=== PATIENT | female | born 1935 | race Caucasian/White ===

== ENCOUNTER → 2017-11-05 10:54 | Outpatient (CLI) | payer MEDICARE, BC, SELFPAY ==
--- NOTE | 2017-11-05 | DI.RAD.S_ITS ---
PROCEDURE: XR KNEE RT 3V INDICATIONS: PAIN TECHNIQUE: 3 views of the knee were acquired. COMPARISON: None. FINDINGS: Bones: No fractures or dislocations. No suspicious bony lesions. Marginal bone spurs over the femoral patellar compartment. Soft tissues: Moderate joint effusion. Lateral meniscal calcifications. IMPRESSION: 1. No acute bony abnormality. 2. Moderate effusion. 3. Femoral patellar osteoarthritis 4. Chondrocalcinosis Dictated by: Kit Teague M.D. on 11/05/2017 at 11:37 Approved by: Kit Teague M.D. on 11/05/2017 at 11:39
--- NOTE | 2017-11-05 | DI.RAD.S_ITS ---
PROCEDURE: XR HIP W PEL IF DONE RT 2V INDICATIONS: PAIN TECHNIQUE: 2 views of the hip were acquired. COMPARISON: [facility], , PELVIS WITH BILATERAL HIPS, 01/25/2009, 15:20. FINDINGS: Bones: Total hip arthroplasty is evident, components appearing intact with expected alignment. No evidence of loosening. No fractures or dislocations. No suspicious bony lesions. The visualized pelvic ring appears intact. Soft tissues: No suspicious soft tissue calcifications or masses. IMPRESSION: Status post total right hip arthroplasty with expected appearance. No acute bony abnormality seen. Dictated by: Kit Teague M.D. on 11/05/2017 at 11:35 Approved by: Kit Teague M.D. on 11/05/2017 at 11:37
== END ==
PROVIDERS: Family Provider Internal Medicine; PCP Internal Medicine; Visit Provider Physician Assistant
DX: M25.551 Pain in right hip (principal); Z96.641 Presence of right artificial hip joint; M25.461 Effusion, right knee; M17.11 Unilateral primary osteoarthritis, right knee; M11.261 Other chondrocalcinosis, right knee
CPT/HCPCS: 73502; 73562

== ENCOUNTER → 2018-03-26 09:58 | Outpatient (CLI) | payer MEDICARE, BC, SELFPAY ==
--- NOTE | 2018-03-26 | DI.MG.S_ITS ---
BILATERAL DIGITAL SCREENING MAMMOGRAM 3D/2D WITH CAD: 03/26/2018 CLINICAL: Routine screening. Comparison is made to exams dated: 01/17/2017 mammogram, 07/24/2012 mammogram, and 08/23/2010 mammogram - [facility]. The tissue of both breasts is heterogeneously dense. This may lower the sensitivity of mammography. Current study was also evaluated with a Computer Aided Detection (CAD) system. No significant masses, calcifications, or other findings are seen in either breast. There has been no significant interval change. IMPRESSION: NEGATIVE There is no mammographic evidence of malignancy. A 1 year screening mammogram is recommended. This exam was interpreted at Station ID: [id number]. NOTE: For mammograms, a report in lay terms will be sent to the patient. Approximately 15% of breast malignancies will not be visualized mammographically. In the management of a palpable breast mass, a negative mammogram must not discourage biopsy of a clinically suspicious lesion. Electronically Signed By: Hermann santiago/agnes:03/26/2018 17:47:10 letter sent: Normal Exam ACR BI-RADS Category 1: Negative 3341F
== END ==
PROVIDERS: Family Provider Internal Medicine; PCP Internal Medicine; Visit Provider Physician Assistant
DX: Z12.31 Encounter for screening mammogram for malignant neoplasm of breast (principal); M81.0 Age-related osteoporosis without current pathological fracture; Z78.0 Asymptomatic menopausal state; E11.9 Type 2 diabetes mellitus without complications; Z82.62 Family history of osteoporosis; Z90.722 Acquired absence of ovaries, bilateral
CPT/HCPCS: 77063; 77067; 77080

== ENCOUNTER → 2018-09-21 09:17 | Outpatient (CLI) | payer MEDICARE, BC, SELFPAY ==
[2018-09-21 10:26] LABS: Add Manual Diff / Slide Review NO; Basophils Absolute Auto 100 /uL (0-100); Basophils Percent Auto 1.1 % (0-2); Eosinophils Absolute Auto 300 /uL (0-450); Eosinophils Percent Auto 3.7 % (2-4); Hematocrit 38.1 % (36-46); Hemoglobin 12.4 g/dL (12.0-16.0); Lymphocytes Absolute Auto 1700 /uL (1100-4500); Lymphocytes Percent Auto 24.4 % (25-40); Mean Corpuscular HGB Conc 32.5 % (30-36); Mean Corpuscular Hemoglobin 30.3 PG (26-34); Mean Corpuscular Volume 93.3 fL (80-100); Monocytes Absolute Auto 500 /uL (0-900); Monocytes Percent Auto 7.6 % (3-14); Neutrophils Absolute Auto 4400 /uL (1500-7000); Neutrophils Percent Auto 63.2 % (50-75); Platelet Count 278 X10^3/uL (150-400); Red Blood Cell Count 4.09 X10^6/uL (4.0-5.2); Red Cell Distribution Width 15.3 % (11.6-14.8)
[2018-09-21 10:30] LABS: Alanine Aminotransferase 29 IU/L (9-52); Albumin 4.3 g/dL (3.5-5.0); Albumin Globulin Ratio 1.8 (1.0-2.8); Alkaline Phosphatase 64 U/L (38-126); Aspartate Aminotransferase 26 IU/L (14-36); BUN Creatinine Ratio 33.1 (6-22); Bilirubin Total 0.4 mg/dL (0.2-1.3); Blood Urea Nitrogen 43 mg/dL (7-17); Calcium 9.1 mg/dL (8.4-10.2); Carbon Dioxide 24 mmol/L (22-32); Chloride 104 mmol/L (98-107); Estimated Glomerular Filt Rate 39.2 mL/min (>60); Globulin 2.4 g/dL (1.7-4.1); Glucose 87 mg/dL (80-110); HEMOLYSIS < 15 (0-50); Potassium 4.7 mmol/L (3.4-5.1); Sodium 137 mmol/L (137-145); Total Protein 6.7 g/dL (6.3-8.2)
[2018-09-21 10:56] LABS: TSH w/ Reflex to FT4 2.03 uIU/mL (0.47-4.68)
[2018-09-21 11:16] LABS: Vitamin B12 488 pg/mL (239-931)
[2018-09-25 19:08] LABS: Albumin 3.9 g/dL (3.8-4.8); Alpha 1 Globulin 0.3 g/dL (0.2-0.3); Alpha 2 Globulin 0.8 g/dL (0.5-0.9); Beta 1 Globulin 0.4 g/dL (0.4-0.6); Gamma Globulin 0.5 g/dL (0.8-1.7); Protein, Total 6.2 g/dL (6.1-8.1)
[2018-10-05 09:37] LABS: Miscellaneous to LabCorp Non Reactive
== END ==
PROVIDERS: PCP Internal Medicine; Visit Provider Internal Medicine
DX: G62.9 Polyneuropathy, unspecified (principal); N18.3 Chronic kidney disease, stage 3 (moderate); I12.9 Hypertensive chronic kidney disease with stage 1 through stage 4 chronic kidney disease, or unspecified chronic kidney disease
CPT/HCPCS: 36415; 80053; 82607; 84155; 84165; 84443; 85025; 86592

== ENCOUNTER → 2018-10-31 09:30 | Outpatient (CLI) | payer MEDICARE, BC, SELFPAY ==
[2018-10-31 10:37] LABS: Add Manual Diff / Slide Review NO; Basophils Absolute Auto 100 /uL (0-100); Basophils Percent Auto 0.7 % (0-2); Eosinophils Absolute Auto 100 /uL (0-450); Eosinophils Percent Auto 1.7 % (2-4); Hematocrit 36.3 % (36-46); Hemoglobin 12.1 g/dL (12.0-16.0); Lymphocytes Absolute Auto 1300 /uL (1100-4500); Lymphocytes Percent Auto 17.1 % (25-40); Mean Corpuscular HGB Conc 33.2 % (30-36); Mean Corpuscular Hemoglobin 30.5 PG (26-34); Mean Corpuscular Volume 92.1 fL (80-100); Monocytes Absolute Auto 500 /uL (0-900); Monocytes Percent Auto 6.6 % (3-14); Neutrophils Absolute Auto 5800 /uL (1500-7000); Neutrophils Percent Auto 73.9 % (50-75); Platelet Count 336 X10^3/uL (150-400); Red Blood Cell Count 3.95 X10^6/uL (4.0-5.2); Red Cell Distribution Width 15.8 % (11.6-14.8); White Blood Cell Count 7.9 X10^3/uL (4.5-11.0)
[2018-10-31 10:56] LABS: INR 2.3 (0.9-1.3); Prothrombin Time 26.4 SECONDS (10.1-12.7)
[2018-10-31 10:58] LABS: PTT Partial Thromboplastin Tim 44 SECONDS (26.4-36.2)
[2018-10-31 10:59] LABS: Erythrocyte Sedimentation Rate 16 MM/HR (0-20)
[2018-10-31 11:02] LABS: Creatine Kinase 131 U/L (30-135)
[2018-11-02 15:02] LABS: Aldolase 6.9 U/L (< 8.2)
[2018-11-02 17:58] LABS: ANCA Screen Negative (Negative)
[2018-11-02 18:13] LABS: Immunoglobulin E 6 kU/L (< 115)
== END ==
PROVIDERS: PCP Internal Medicine; Visit Provider Internal Medicine
DX: D80.1 Nonfamilial hypogammaglobulinemia (principal); G62.9 Polyneuropathy, unspecified; Z86.79 Personal history of other diseases of the circulatory system; M62.81 Muscle weakness (generalized); I48.0 Paroxysmal atrial fibrillation
CPT/HCPCS: 36415; 82085; 82550; 82784; 82785; 85025; 85610; 85651; 85730; 86021; 86140; 86335

== ENCOUNTER → 2018-11-17 15:23 | Outpatient (CLI) | payer MEDICARE, BC, SELFPAY ==
--- NOTE | 2018-11-17 | DI.RAD.S_ITS ---
PROCEDURE: XR CHEST 2V INDICATIONS: Dyspnea on exertion TECHNIQUE: 2 views of the chest were acquired. COMPARISON: [facility], , CHEST 1 VIEW, 07/23/2016, 16:02. FINDINGS: Surgical changes and devices: None. Lungs and pleura: Minimal blunting of the left costophrenic angle. No pneumothorax. No right pleural effusion. No acute consolidation. Scattered subsegmental atelectasis and/or scarring Mediastinum: Mediastinal contours are normal. Heart size is normal. Bones and chest wall: No suspicious bony abnormalities. Diffuse spondylosis. Soft tissues appear unremarkable. IMPRESSION: Minimal blunting of left costophrenic angle, which could represent trace pleural fluid versus scarring/atelectasis. Dictated by: Abdi Greco M.D. on 11/17/2018 at 16:35 Approved by: Abdi Greco M.D. on 11/17/2018 at 16:36
[2018-11-17 16:00] LABS: Add Manual Diff / Slide Review NO; Basophils Absolute Auto 100 /uL (0-100); Eosinophils Absolute Auto 200 /uL (0-450); Eosinophils Percent Auto 2.3 % (2-4); Hematocrit 35.5 % (36-46); Hemoglobin 11.6 g/dL (12.0-16.0); Lymphocytes Absolute Auto 1500 /uL (1100-4500); Lymphocytes Percent Auto 17.9 % (25-40); Mean Corpuscular HGB Conc 32.8 % (30-36); Mean Corpuscular Hemoglobin 30.3 PG (26-34); Mean Corpuscular Volume 92.3 fL (80-100); Monocytes Absolute Auto 700 /uL (0-900); Monocytes Percent Auto 8.1 % (3-14); Neutrophils Absolute Auto 6100 /uL (1500-7000); Neutrophils Percent Auto 70.7 % (50-75); Platelet Count 365 X10^3/uL (150-400); Red Blood Cell Count 3.84 X10^6/uL (4.0-5.2); Red Cell Distribution Width 15.9 % (11.6-14.8); White Blood Cell Count 8.6 X10^3/uL (4.5-11.0)
[2018-11-17 16:15] LABS: B Type Natriuretic Peptide 419 (<100)
[2018-11-17 16:35] LABS: BUN Creatinine Ratio 24.7 (6-22); Blood Urea Nitrogen 42 mg/dL (7-17); Calcium 9.4 mg/dL (8.4-10.2); Carbon Dioxide 24 mmol/L (22-32); Chloride 108 mmol/L (98-107); Estimated Glomerular Filt Rate 28.8 mL/min (>60); Glucose 89 mg/dL (80-110); HEMOLYSIS < 15 (0-50); Sodium 140 mmol/L (137-145)
[2018-11-17 16:39] LABS: Potassium 5.6 mmol/L (3.4-5.1)
== END ==
PROVIDERS: PCP Internal Medicine; Visit Provider Internal Medicine
DX: R06.09 Other forms of dyspnea (principal); I10 Essential (primary) hypertension
CPT/HCPCS: 36415; 71046; 80048; 83880; 85025

== ENCOUNTER → 2018-12-10 16:32 | Outpatient (CLI) | payer MEDICARE, BC, SELFPAY ==
--- NOTE | 2018-12-10 | DI.RAD.S_ITS ---
PROCEDURE: XR KNEE RT 3V INDICATIONS: HISTORY OF RIGHT HIP AND KNEE PAIN TECHNIQUE: 3 views of the knee were acquired. COMPARISON: [facility], CR, XR KNEE STANDING BILATERAL, 11/18/2017, 9:33. [facility], CR, XR KNEE RT 3V, 11/05/2017, 10:39. FINDINGS: Bones: No fractures or dislocations. No suspicious bony lesions. Moderate degenerative osteoarthritis is present at the lateral compartment of the knee on the frontal view, and at the lateral facet of the patellofemoral joint. Soft tissues: There appears to be a moderate-sized suprapatellar joint effusion. No suspicious soft tissue calcifications. IMPRESSION: Moderate knee joint osteoarthritis, best seen at the lateral compartment. Moderate knee joint effusion appears present on the lateral view, etiology uncertain. Please correlate for whether trauma has proceeded this examination. Dictated by: Nasir Whipple M.D. on 12/11/2018 at 8:15 Approved by: Nasir Whipple M.D. on 12/11/2018 at 8:17
--- NOTE | 2018-12-10 | DI.RAD.S_ITS ---
PROCEDURE: XR HIP RT 1V INDICATIONS: HISTORY OF RIGHT HIP AND KNEE PAIN TECHNIQUE: 2 views of the hip were acquired. COMPARISON: [facility], CR, XR HIP W PEL IF DONE RT 2V, 11/05/2017, 10:39. FINDINGS: Bones: No fractures or dislocations. No suspicious bony lesions. The visualized pelvic ring appears intact. Soft tissues: No suspicious soft tissue calcifications or masses. IMPRESSION: Stable appearing right total hip arthroplasty, moderate osteoarthritis at the left hip joint. No evidence of device loosening or disruption, or recent trauma. Dictated by: Nasir Whipple M.D. on 12/11/2018 at 8:14 Approved by: Nasir Whipple M.D. on 12/11/2018 at 8:15
--- NOTE | 2018-12-10 | DI.RAD.S_ITS ---
PROCEDURE: XR LUMBAR SPINE MIN 4V INDICATIONS: HISTORY OF RIGHT HIP AND KNEE PAIN TECHNIQUE: 5 views of the lumbar spine were acquired. COMPARISON: [facility], CR, L-SPINE 2-3 VIEWS, 09/17/2016, 12:36. [facility] With [facility], CR, L-SPINE 2-3 VIEWS, 05/06/2014, 9:54. FINDINGS: Bones: 5 nonrib-bearing vertebrae are present. There is abnormal bony alignment with moderate convex rightward scoliosis centered at the thoracolumbar junction and mild to moderate convex leftward scoliosis centered at the L4-5 disc space. This pattern has been previously present without worsening. Degenerative disc disease along the lumbosacral spine is moderately severe and most pronounced along the inner curvature of the 2 areas of dominant and since it iary scoliosis. The facet osteoarthritis present at the thoracolumbar junction and lumbosacral spine has mildly worsened as has the osteophyte formation from adjacent disc spaces best seen at L4-5 and L5-S1. Spinal and foraminal stenosis would be expected and appears to have moderately worsened from 2013. No vertebral body compression fractures. No suspicious bony lesions. Soft tissues: Overlying bowel gas pattern is normal. No suspicious soft tissue calcifications. Oblique images: No pars defects. IMPRESSION: Worsening degenerative disc disease and facet osteoarthritis best seen over the lower third of the lumbosacral spine associated with stable appearing convex rightward thoracolumbar junction scoliosis and compensatory subsidiary convex leftward scoliosis centered at L4-5. Overall increased spinal and foraminal stenosis would be expected. Dictated by: Nasir Whipple M.D. on 12/11/2018 at 8:18 Approved by: Nasir Whipple M.D. on 12/11/2018 at 8:22
[2018-12-10 18:07] LABS: BUN Creatinine Ratio 36.5 (6-22); Blood Urea Nitrogen 62 mg/dL (7-17); Calcium 10.2 mg/dL (8.4-10.2); Carbon Dioxide 23 mmol/L (22-32); Chloride 103 mmol/L (98-107); Estimated Glomerular Filt Rate 28.7 mL/min (>60); Glucose 88 mg/dL (80-110); HEMOLYSIS < 15 (0-50); Sodium 138 mmol/L (137-145)
[2018-12-10 18:17] LABS: Potassium 5.4 mmol/L (3.4-5.1)
== END ==
PROVIDERS: PCP Internal Medicine; Visit Provider Internal Medicine
DX: M25.561 Pain in right knee (principal); M54.41 Lumbago with sciatica, right side; M25.551 Pain in right hip; M17.11 Unilateral primary osteoarthritis, right knee; M25.461 Effusion, right knee; M51.37 Other intervertebral disc degeneration, lumbosacral region; M47.817 Spondylosis without myelopathy or radiculopathy, lumbosacral region
CPT/HCPCS: 36415; 72110; 73501; 73562; 80048

== ENCOUNTER → 2019-01-05 17:29 | Outpatient (ROUT) | payer MEDICARE, BC, SELFPAY ==
[2019-01-05 17:49] LABS: BUN Creatinine Ratio 37.7 (6-22); Blood Urea Nitrogen 49 mg/dL (7-17); Calcium 9.5 mg/dL (8.4-10.2); Carbon Dioxide 21 mmol/L (22-32); Chloride 108 mmol/L (98-107); Estimated Glomerular Filt Rate 39.1 mL/min (>60); Glucose 143 mg/dL (80-110); HEMOLYSIS < 15 (0-50); Potassium 4.9 mmol/L (3.4-5.1); Sodium 138 mmol/L (137-145)
[2019-01-05 17:58] LABS: B Type Natriuretic Peptide 559 (<100)
== END ==
PROVIDERS: PCP Internal Medicine; Visit Provider Internal Medicine
DX: R60.9 Edema, unspecified (principal)
CPT/HCPCS: 80048; 83880

== ENCOUNTER → 2019-01-19 09:08 | Outpatient (CLI) | payer MEDICARE, BC, SELFPAY ==
[2019-01-19 10:45] LABS: BUN Creatinine Ratio 26.2 (6-22); Blood Urea Nitrogen 34 mg/dL (7-17); Calcium 9.3 mg/dL (8.4-10.2); Carbon Dioxide 22 mmol/L (22-32); Chloride 105 mmol/L (98-107); Estimated Glomerular Filt Rate 39.1 mL/min (>60); Glucose 71 mg/dL (80-110); HEMOLYSIS < 15 (0-50); Potassium 4.4 mmol/L (3.4-5.1); Sodium 138 mmol/L (137-145)
[2019-01-19 11:04] LABS: B Type Natriuretic Peptide 346 (<100)
== END ==
PROVIDERS: PCP Internal Medicine; Visit Provider Internal Medicine
DX: I10 Essential (primary) hypertension (principal); R06.00 Dyspnea, unspecified
CPT/HCPCS: 36415; 80048; 83880

== ENCOUNTER → 2019-01-27 19:15 | Outpatient (ROUT) | payer MEDICARE, BC, SELFPAY ==
[2019-01-27 19:33] LABS: BUN Creatinine Ratio 32.7 (6-22); Blood Urea Nitrogen 49 mg/dL (7-17); Calcium 9.3 mg/dL (8.4-10.2); Carbon Dioxide 23 mmol/L (22-32); Chloride 104 mmol/L (98-107); Estimated Glomerular Filt Rate 33.2 mL/min (>60); Glucose 91 mg/dL (80-110); HEMOLYSIS < 15 (0-50); Potassium 4.8 mmol/L (3.4-5.1); Sodium 138 mmol/L (137-145)
[2019-01-27 19:40] LABS: B Type Natriuretic Peptide 603 (<100)
== END ==
PROVIDERS: PCP Internal Medicine; Visit Provider Internal Medicine
DX: R60.9 Edema, unspecified (principal); R79.89 Other specified abnormal findings of blood chemistry
CPT/HCPCS: 80048; 83880

== ENCOUNTER → 2019-03-29 15:24 | Outpatient (ROUT) | payer MEDICARE, BC, SELFPAY ==
[2019-03-29 15:43] LABS: Add Manual Diff / Slide Review NO; Basophils Absolute Auto 100 /uL (0-100); Basophils Percent Auto 0.7 % (0-2); Eosinophils Absolute Auto 100 /uL (0-450); Eosinophils Percent Auto 1.8 % (2-4); Hematocrit 34.8 % (36-46); Hemoglobin 11.7 g/dL (12.0-16.0); Lymphocytes Absolute Auto 1100 /uL (1100-4500); Lymphocytes Percent Auto 15.2 % (25-40); Mean Corpuscular HGB Conc 33.6 % (30-36); Mean Corpuscular Hemoglobin 31.4 PG (26-34); Mean Corpuscular Volume 93.4 fL (80-100); Monocytes Absolute Auto 800 /uL (0-900); Monocytes Percent Auto 10.6 % (3-14); Neutrophils Absolute Auto 5300 /uL (1500-7000); Neutrophils Percent Auto 71.7 % (50-75); Platelet Count 335 X10^3/uL (150-400); Red Blood Cell Count 3.72 X10^6/uL (4.0-5.2); White Blood Cell Count 7.4 X10^3/uL (4.5-11.0)
[2019-03-29 15:50] LABS: B Type Natriuretic Peptide 279 (<100)
[2019-03-29 15:55] LABS: Alanine Aminotransferase 19 IU/L (<35); Albumin 4.5 g/dL (3.5-5.0); Albumin Globulin Ratio 1.9 (1.0-2.8); Alkaline Phosphatase 64 U/L (38-126); Aspartate Aminotransferase 26 IU/L (14-36); BUN Creatinine Ratio 34.7 (6-22); Bilirubin Total 0.6 mg/dL (0.2-1.3); Blood Urea Nitrogen 59 mg/dL (7-17); Calcium 10.4 mg/dL (8.4-10.2); Carbon Dioxide 24 mmol/L (22-32); Chloride 102 mmol/L (98-107); Estimated Glomerular Filt Rate 28.7 mL/min (>60); Globulin 2.4 g/dL (1.7-4.1); Glucose 75 mg/dL (80-110); HEMOLYSIS < 15 (0-50); Potassium 5.2 mmol/L (3.4-5.1); Sodium 138 mmol/L (137-145); Total Protein 6.9 g/dL (6.3-8.2)
[2019-03-29 16:14] LABS: Protein (Total) Urine Random 13 mg/dL (0-12); Protein Creatinine Ratio Urine 0.44 GRAM/24H
== END ==
PROVIDERS: PCP Internal Medicine; Visit Provider Internal Medicine
DX: R06.00 Dyspnea, unspecified (principal); I10 Essential (primary) hypertension; N18.3 Chronic kidney disease, stage 3 (moderate); E83.52 Hypercalcemia
CPT/HCPCS: 80053; 82570; 83880; 84156; 85025

== ENCOUNTER → 2019-04-06 14:51 | Outpatient (CLI) | payer MEDICARE, BC, SELFPAY ==
--- NOTE | 2019-04-06 | DI.MRI.S_ITS ---
PROCEDURE: MR KNEE RT WO CON INDICATIONS: KNEE PAIN TECHNIQUE: Noncontrast sagittal PD fast spin echo and T2 fast spin echo with fat saturation, sagittal 3-D FLASH with fat saturation; coronal T1 spin echo and PD fast spin echo with fat saturation, and axial PD fast spin echo with fat saturation through the knee. COMPARISON: [facility], CR, XR KNEE ARTHRITIC SERIES RT, 01/05/2019, 11:21. FINDINGS: Image quality: Excellent. Menisci: There is lateral meniscal extrusion and degenerative tear involving the body and antral horn tear lateral meniscus.. The medial and lateral menisci demonstrate normal morphology and internal signal. The meniscal root ligaments appear intact. Cruciate ligaments: The anterior and posterior cruciate ligaments appear intact. Medial structures: The medial collateral ligament appears intact. The posterior oblique ligament, semimembranosus tendon insertions, oblique popliteal ligament, and meniscocapsular junction appear intact. Visualized portions of the pes anserinus tendons appear normal. No abnormal bursal fluid. Lateral structures: The lateral collateral ligament, long and short heads of the biceps femoris tendon appear intact. The popliteus tendon appears normal; the popliteofibular ligament appears intact. The posterosuperior and anteroinferior popliteomeniscal fascicles appear intact. The arcuate and fabellofibular ligaments appear intact, on either side of the lateral inferior geniculate artery. Iliotibial band appears normal. Anterior structures: The quadriceps and patellar tendons appear intact. Patellar alignment is normal. No femoral trochlear dysplasia or ventral trochlear prominence. No edema in the infrapatellar fat pad. Bones and cartilage: No bone marrow contusions or fractures. Severe chondromalacia patella. There is also cartilage thinning and fibrillation of the medial and lateral femorotibial compartments, more pronounced in the lateral femorotibial compartment. There is subchondral edema in the patella, femoral trochlear and the lateral tibial plateau, likely secondary to [id number]. Joint space: There is moderate to large knee joint fluid. Trace Mandujano's cyst. Normal appearing synovial plicae are incidentally noted. There is nonspecific soft tissue edema around knee. IMPRESSION: 1. Lateral meniscal extrusion and degenerative tear of the body and anterior horn of the lateral meniscus. 2. Chondromalacia patella. There is also moderate cartilage loss in the lateral femorotibial compartment and mild cartilage loss in the medial femorotibial compartment. Subchondral edema in the patella, femoral trochlear and the lateral tibial plateau secondary to muiz-ce-pfwt. 3. Moderate to large knee joint effusion. 4. Nonspecific soft tissue edema. Dictated by: Stephanie Myers M.D. on 04/06/2019 at 16:42 Approved by: Stephanie Myers M.D. on 04/06/2019 at 18:48
--- NOTE | 2019-04-06 | DI.MG.S_ITS ---
BILATERAL DIGITAL SCREENING MAMMOGRAM 3D/2D WITH CAD: 04/06/2019 CLINICAL: Routine screening. Comparison is made to exams dated: 03/26/2018 mammogram, 01/29/2017 mammogram, and 01/17/2017 mammogram - [facility]. The tissue of both breasts is heterogeneously dense. This may lower the sensitivity of mammography. Current study was also evaluated with a Computer Aided Detection (CAD) system. No significant masses, calcifications, or other findings are seen in either breast. There has been no significant interval change. IMPRESSION: NEGATIVE There is no mammographic evidence of malignancy. A 1 year screening mammogram is recommended. This exam was interpreted at Station ID: [id number]. NOTE: For mammograms, a report in lay terms will be sent to the patient. Approximately 15% of breast malignancies will not be visualized mammographically. In the management of a palpable breast mass, a negative mammogram must not discourage biopsy of a clinically suspicious lesion. Electronically Signed By: Elicia tubbs/agnes:04/06/2019 18:54:26 letter sent: Normal Exam ACR BI-RADS Category 1: Negative 3341F
--- NOTE | 2019-04-06 | DI.MRI.S_ITS ---
PROCEDURE: MR LUMBAR SPINE WO CON INDICATIONS: LUMBAR RADICULITIS TECHNIQUE: Noncontrast sagittal T1 spin echo and T2 fast echo, sagittal STIR, axial T1 and T2 fast spin echo through the lumbar spine. In cases with scoliosis, additional coronal T2 fast spin echo may be performed. COMPARISON: [facility], CT, ABDOMEN W AND WO PELVIS W, 07/23/2016, 10:00. FINDINGS: Image quality: Excellent. Alignment and Curvature: There is moderate dextroconvex scoliosis. There is minimal retrolisthesis seen at the L1-L2 level. Bone Marrow: The bone marrow is diffusely heterogeneous. No focally suspicious bone marrow lesions are seen. No acute vertebral body compression fractures. There is a remote anterior wedge deformity seen of the L1 level, with an associated Schmorl's node. There is 50% loss of height centrally. No significant posterior displacement fracture fragments can be seen. Spinal Cord: Conus medullaris terminates at the L1 level. Visualized cord demonstrates normal signal and size. Paraspinous Soft Tissues: No paravertebral masses. T12-L1: Mild to moderate loss of disc height and disc signal can be seen. Mild to moderate disc bulge is seen, which is eccentric to the left. Prominent bridging endplate osteophytes are seen on the left. There is mild to moderate left-sided and no right-sided neural foraminal narrowing seen. Mild central canal narrowing is seen. L1-L2: At least moderate loss of disc height is seen on the left side. Loss of disc signal is seen. Moderate disc bulge is seen, which is eccentric to the left. There are prominent bridging endplate osteophytes seen on the left. There is at least moderate left-sided and mild right-sided neural foraminal narrowing seen. No significant central canal narrowing is seen. L2-L3: There is at least moderate left-sided neural foraminal narrowing seen. Loss of disc signal is seen. Endplate irregularity can be seen. Lfso-cg-jwpmdyts disc bulge is seen. Moderate facet joint hypertrophy is seen. There is mild to moderate right-sided and at least moderate left-sided nerve narrowing seen. Moderate central canal narrowing is seen. L3-L4: Mild loss of disc height is seen. Loss of disc signal is seen. Kqbi-ue-ighwkcky disc bulge is seen. At least moderate facet hypertrophy is seen. Moderate hypertrophy of the ligamentum flavum can be seen. Moderate bilateral neural foraminal narrowing is seen. Moderate central canal narrowing is seen. L4-L5: Moderate loss of disc height is seen. Loss of disc signal is seen. Moderate disc bulge is seen, which is eccentric to the right. Moderate facet joint hypertrophy is seen. There is moderate right-sided and mild left-sided neural foraminal narrowing seen. Moderate central canal narrowing is seen. L5-S1: Moderate to severe loss of disc height and disc signal are seen. At least moderate disc bulge is seen. Hqhh-wp-jwkwwnwa facet hypertrophy is seen. No significant neural foraminal narrowing is seen. Mild central canal narrowing is seen. 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 IMPRESSION: Multiple levels of relatively prominent lumbar spine degenerative change are seen. Moderate dextroconvex scoliosis. Dictated by: Braulio Hennessy M.D. on 04/06/2019 at 15:27 Approved by: Braulio Hennessy M.D. on 04/06/2019 at 15:34
== END ==
PROVIDERS: PCP Internal Medicine; Visit Provider Internal Medicine
DX: Z12.31 Encounter for screening mammogram for malignant neoplasm of breast (principal); M47.26 Other spondylosis with radiculopathy, lumbar region; M41.86 Other forms of scoliosis, lumbar region; M25.561 Pain in right knee; M22.41 Chondromalacia patellae, right knee; M25.461 Effusion, right knee; M23.241 Derangement of anterior horn of lateral meniscus due to old tear or injury, right knee; M23.261 Derangement of other lateral meniscus due to old tear or injury, right knee
CPT/HCPCS: 72148; 73721; 77063; 77067

== ENCOUNTER → 2019-05-28 09:09 | Outpatient (CLI) | payer MEDICARE, BC, SELFPAY ==
--- NOTE | 2019-06-02 10:15 | P.PFT.S_ITS ---
Pulmonary Function Test Referral & Results Date Patient Seen: 05/28/19 Requesting provider: Daylin Bradshaw Results: The spirometry demonstrates an FVC of 3.08 L which is 105% of predicted. The FEV1 was measured at 1.90 L which is 87% of predicted. The FEV1/FVC ratio was 62 which is 84% of predicted. Following the administration of bronchodilator there was a 6% improvement in FEV1 and a 32% improvement in FEF 25-75%. Lung volumes show an SVC of 3.14 L which is 106% of predicted. The diffusing capacity was measured at 12.04 which is 41% of predicted. No hemoglobin value was provided, so no correction for potential anemia could be made, if appropriate. The maximum voluntary ventilation was reduced Interpretation: This study demonstrates minimal obstructive lung disease based on minimal red uction FEV1 but improvement in small airway flow as above with a 32% change in the FEF 25-75% following bronchodilator There is a much more severe reduction in diffusing capacity suggesting significa nt disease at the capillary alveolar level
== END ==
PROVIDERS: PCP Internal Medicine; Visit Provider Internal Medicine
DX: R06.09 Other forms of dyspnea (principal); J98.8 Other specified respiratory disorders
CPT/HCPCS: 94060; 94726; 94729

== ENCOUNTER → 2019-07-28 10:01 | Outpatient (CLI) | payer MEDICARE, BC, SELFPAY ==
--- NOTE | 2019-07-28 15:47 | PM.TREADMILL ---
Cardiac Stress Test Report Referral & Results Date Patient Seen: 07/28/19 Time Patient Seen: 15:47 Requesting provider: Daylin Bradshaw Indication: dyspnea Rest ECG: sinus rhythm Procedure Note: After Lexiscan injection had minimal dyspnea, no chest discomfort; baseline ECG sinus rhythm; No significant ST changes on ECG after Lexiscan injection; no ectopy. No reversal agents needed. Impression: normal lexiscan stress test. Nuclear images pending Please note: Actual ECG tracings can be found in the PACS system.
--- NOTE | 2019-08-03 14:12 | DI.NM.S_ITS ---
DATE OF SERVICE: 06/29/2019 PROCEDURE: Pharmacological perfusion study. INDICATIONS: Shortness of breath with underlying hypertension. RADIOPHARMACEUTICAL: 24.4 millicurie technetium-99m Myoview IV was injected at stress and 10.4 millicurie technetium-99m Myoview IV was injected at rest. It was one day protocol. CARDIAC STRESS: The patient underwent IV Lexiscan perfusion study under the supervision of an attending staff using standard IV Lexiscan protocol. The patient remained hemodynamically stable. Baseline EKG revealed sinus rhythm with poor R-wave progression. During stress, there were no convincing ischemic changes. The patient had some PVCs without any ventricular tachycardia. During Lexiscan injection, had minimal dyspnea without any chest discomfort. RAW DATA: There was breast shadow seen. There was increased subdiaphragmatic activity. GATED STUDY: Stress LV ejection fraction 86 percent and resting LV ejection fraction 82 percent without any wall motion abnormalities. Resting end- diastolic volume 111 mL. No transient ischemic dilatation. TID ratio 1.11, which is within normal limits. Lung-heart ratio 0.25, which is within normal limits. MYOCARDIAL PERFUSION: Stress supine, resting supine and stress prone images were compared to each other. The stress supine and resting supine images revealed a small size, mildly decreased perfusion of distal anterior septum, which got resolved during prone images. Prone images revealed normal myocardial perfusion. There was evidence of breast tissue attenuation artifact. CONCLUSION: I will call this study a normal myocardial perfusion study with evidence of breast tissue attenuation artifact, which got resolved during prone images. Overall this is a low risk myocardial perfusion scan. Joanne Chi - Rachid/eddie doc#: [id number]/job#: [id number] dd: 07/28/2019 17:04:00 dt: 07/29/2019 10:11:00 DICTATING MD/COPIES TO: Zoie Pat MD COPIES MNE: MARKIE;
== END ==
PROVIDERS: PCP Internal Medicine; Referring Provider Internal Medicine; Visit Provider Internal Medicine
DX: R06.09 Other forms of dyspnea (principal)
CPT/HCPCS: 78452; 93017; A9502; J2785

== ENCOUNTER → 2019-12-21 15:05 | Outpatient (ROUT) | payer MEDICARE, BC, SELFPAY ==
[2019-12-21 15:22] LABS: Add Manual Diff / Slide Review NO; Basophils Absolute Auto 100 /uL (0-100); Basophils Percent Auto 1.1 % (0-2); Eosinophils Absolute Auto 100 /uL (0-450); Eosinophils Percent Auto 1.8 % (2-4); Hematocrit 32.6 % (36-46); Hemoglobin 10.6 g/dL (12.0-16.0); Lymphocytes Absolute Auto 900 /uL (1100-4500); Lymphocytes Percent Auto 12.7 % (25-40); Mean Corpuscular HGB Conc 32.4 % (30-36); Mean Corpuscular Hemoglobin 29.4 PG (26-34); Mean Corpuscular Volume 90.7 fL (80-100); Monocytes Absolute Auto 700 /uL (0-900); Monocytes Percent Auto 9.7 % (3-14); Neutrophils Absolute Auto 5100 /uL (1500-7000); Neutrophils Percent Auto 74.7 % (50-75); Platelet Count 269 X10^3/uL (150-400); Red Blood Cell Count 3.59 X10^6/uL (4.0-5.2); Red Cell Distribution Width 16.4 % (11.6-14.8); White Blood Cell Count 6.9 X10^3/uL (4.5-11.0)
[2019-12-21 15:47] LABS: BUN Creatinine Ratio 26.5 (6-22); Blood Urea Nitrogen 36 mg/dL (7-17); Calcium 9.7 mg/dL (8.4-10.2); Carbon Dioxide 20 mmol/L (22-32); Chloride 107 mmol/L (98-107); Glucose 92 mg/dL (80-110); HEMOLYSIS < 15 (0-50); Potassium 5.3 mmol/L (3.4-5.1); Sodium 135 mmol/L (137-145)
[2019-12-21 15:50] LABS: NT-proBNP (BNP-Adult 18+) 1430 pg/mL (<450)
== END ==
PROVIDERS: PCP Internal Medicine; Visit Provider Internal Medicine
DX: R06.00 Dyspnea, unspecified (principal)
CPT/HCPCS: 80048; 83880; 85025

== ENCOUNTER → 2019-12-24 08:29 | Outpatient (CLI) | payer MEDICARE, BC, SELFPAY ==
--- NOTE | 2019-12-24 | DI.RAD.S_ITS ---
PROCEDURE: XR CHEST 2V INDICATIONS: Dyspnea, unspecified TECHNIQUE: 2 views of the chest were acquired. COMPARISON: [facility], CR, XR CHEST 2V, 11/17/2018, 15:43. FINDINGS: Surgical changes and devices: None. Lungs and pleura: Findings are stable. Blunting and pleural thickening at the left costophrenic angle, likely representing scarring. Lungs are clear. No pleural effusions or pneumothorax. Mediastinum: Mediastinal contours are normal. Heart size is normal. Bones and chest wall: No suspicious bony abnormalities. Soft tissues appear unremarkable. IMPRESSION: Scarring in the region of the left lateral costophrenic angle. No evidence acute pulmonary process. Dictated by: Jose A Urban M.D. on 12/24/2019 at 10:48 Approved by: Jose A Urban M.D. on 12/24/2019 at 10:49
== END ==
PROVIDERS: PCP Internal Medicine; Referring Provider Internal Medicine; Visit Provider Internal Medicine
DX: R06.00 Dyspnea, unspecified (principal)
CPT/HCPCS: 71046

== ENCOUNTER → 2019-12-27 12:19 | Outpatient (CLI) | payer MEDICARE, BC, SELFPAY ==
--- NOTE | 2019-12-27 | DI.US.S_ITS ---
PROCEDURE: US PERIPH VENOUS UP EXTREM ANTONI INDICATIONS: EDEMA TECHNIQUE: Real-time imaging, as well as color and pulse Doppler interrogation, was performed of both upper extremity deep veins from the inferior neck to the antecubital fossa. COMPARISON: None. FINDINGS: Right: The internal jugular veins, visualized portions of the subclavian veins, axillary veins, and brachial veins are free of intraluminal thrombus. Where physically possible, the veins are normally compressible. Color and pulse Doppler demonstrate normal intraluminal flow, with expected phasicity and pulsatility. Additional scanning of the cephalic and basilic veins of the superficial system demonstrate normal compressibility, without thrombus. Left: The internal jugular veins, visualized portions of the subclavian veins, axillary veins, and brachial veins are free of intraluminal thrombus. Where physically possible, the veins are normally compressible. Color and pulse Doppler demonstrate normal intraluminal flow, with expected phasicity and pulsatility. Additional scanning of the cephalic and basilic veins of the superficial system demonstrate normal compressibility, without thrombus. IMPRESSION: No DVT found. Dictated by: Nasir Whipple M.D. on 12/27/2019 at 13:56 Approved by: Nasir Whipple M.D. on 12/27/2019 at 13:57
--- NOTE | 2019-12-27 | DI.MRI.S_ITS ---
PROCEDURE: MR CERVICAL SPINE WO CON INDICATIONS: CERVICAL RADICULOPATHY AT C5 TECHNIQUE: Noncontrast sagittal T1 spin echo and T2 fast spin echo, sagittal STIR, foraminal oblique sagittal T2 fast spin echo, and axial gradient echo or T2 fast spin echo through the cervical spine. COMPARISON: [facility], CERVICAL SPINE 4 OR 5 VIEWS, 09/17/2016, 12:36. FINDINGS: Image quality: Prominent motion is present, limiting areas of evaluation. Alignment and Curvature: There is trace retrolithesis of C4 on C5. Bone Marrow: Marrow demonstrates normal overall signal. Spinal Cord: Visualized spinal cord has normal size and signal. No cerebellar tonsillar herniation. Paraspinous Soft Tissues: No paravertebral masses. Prevertebral soft tissues are normal in thickness. Discs: Moderate to severe disc desiccation is present throughout the cervical spine. C2-C3: Minimal disc bulge without spinal stenosis or foraminal narrowing. C3-C4: Mild disc bulge without spinal stenosis. Mild right foraminal narrowing with uncovertebral hypertrophy. C4-C5: Mild disc bulge with atma-dg-idiiilik spinal stenosis. Moderate to severe bilateral foraminal narrowing with uncovertebral hypertrophy. C5-C6: Mild disc bulge with minimal spinal stenosis. Severe left and moderate right foraminal narrowing with uncovertebral hypertrophy. C6-C7: Mild disc bulge with mild appearance of a small protrusion/extrusion in the left posterior paracentral region. It is poorly visualized secondary to motion. There is mild compromise of the left lateral recess. Foramina are poorly visualized secondary to motion. However there is felt to be likely moderate bilateral foraminal narrowing with uncovertebral hypertrophy. C7-T1: Limited evaluation secondary to motion. No gross disc bulge, spinal stenosis or foraminal narrowing. IMPRESSION: 1. Limited exam secondary to multilevel motion. 2. Multilevel disc bulges including small protrusion/extrusion C6-7 as above. 3. Multilevel foraminal narrowing severe at C5-6 secondary to uncovertebral arthropathy. Dictated by: Marli Shay M.D. on 12/27/2019 at 14:09 Approved by: Marli Shay M.D. on 12/27/2019 at 14:26
== END ==
PROVIDERS: PCP Internal Medicine; Referring Provider Internal Medicine; Visit Provider Internal Medicine
DX: M50.123 Cervical disc disorder at C6-C7 level with radiculopathy (principal); M48.02 Spinal stenosis, cervical region; M47.22 Other spondylosis with radiculopathy, cervical region; R60.0 Localized edema
CPT/HCPCS: 72141; 93970

== ENCOUNTER → 2020-01-06 19:18 | Outpatient (ROUT) | payer MEDICARE, BC, SELFPAY ==
[2020-01-06 19:21] LABS: Bacteria Urine None Seen; RBC Urine None Seen (0-5/HPF)
[2020-01-06 19:32] LABS: Hematocrit 33.7 % (36-46); Hemoglobin 10.7 g/dL (12.0-16.0); Mean Corpuscular HGB Conc 31.8 % (30-36); Mean Corpuscular Hemoglobin 29.3 PG (26-34); Mean Corpuscular Volume 92.1 fL (80-100); Platelet Count 316 X10^3/uL (150-400); Red Blood Cell Count 3.66 X10^6/uL (4.0-5.2); Red Cell Distribution Width 16.7 % (11.6-14.8); White Blood Cell Count 7.7 X10^3/uL (4.5-11.0)
[2020-01-06 19:36] LABS: HEMOLYSIS < 15 (0-50); Iron 67 ug/dL (37-170)
[2020-01-06 19:40] LABS: Appearance Urine UA CLEAR; Bilirubin Urine UA NEGATIVE (NEGATIVE); Color Urine UA YELLOW; Glucose Urine UA NEGATIVE (Negative); Ketones Urine UA NEGATIVE (NEGATIVE); Leukocyte Esterase Urine UA NEGATIVE (NEGATIVE); Nitrite Urine UA NEGATIVE (Negative); Occult Blood Urine UA NEGATIVE (Negative); Protein Urine UA NEGATIVE (Negative); Urobilinogen Urine UA 0.2 E.U./dL (0.2)
[2020-01-06 19:42] LABS: Reticulocyte Count, Percent 1.4 % (1.06-2.63)
[2020-01-06 19:47] LABS: Percent Iron Saturation 18 % (15-50); Total Iron Binding Capacity 372 ug/dL (265-497); Transferrin 294 mg/dL (206-381)
[2020-01-06 19:56] LABS: Neutrophils Absolute Manual 5390 /uL (3000-5900); Total Cells Counted 100
[2020-01-06 19:57] LABS: Platelet Estimate Adequate on smear; RBC Morphology Normal Morphology
[2020-01-06 19:58] LABS: Culture Indicated Urine Cult Not Indicated; Squamous Epithelial Cell Urine 0-1 /HPF (0-5/HPF); WBC Urine 0-1/HPF (0-5/HPF)
[2020-01-06 20:13] LABS: Ferritin 22 ng/mL (11-264)
[2020-01-06 20:44] LABS: Folate 6.3 ng/mL (2.76-20.0); Vitamin B12 355 pg/mL (239-931)
== END ==
PROVIDERS: PCP Internal Medicine; Visit Provider Internal Medicine
DX: D64.9 Anemia, unspecified (principal)
CPT/HCPCS: 81001; 82607; 82728; 82746; 83540; 83550; 85025; 85045

== ENCOUNTER → 2020-02-07 12:19 | Outpatient (CLI) | payer MEDICARE, BC, SELFPAY ==
--- NOTE | 2020-02-07 | DI.RAD.S_ITS ---
PROCEDURE: XR HAND LT MIN 3V INDICATIONS: Osteoarthritis of Multiple Joints TECHNIQUE: 3 views of the hand(s) acquired. COMPARISON: [facility], , HAND 3V RIGHT, 01/25/2009, 15:20. FINDINGS: Bones: Diffuse interphalangeal and carpal joint degeneration most severe at the 1st CMC joint. No fracture. Soft tissues: No suspicious soft tissue calcifications. IMPRESSION: Diffuse left hand osteoarthritis. Dictated by: Abdi Greco M.D. on 02/07/2020 at 13:39 Approved by: Abdi Greco M.D. on 02/07/2020 at 13:42
--- NOTE | 2020-02-07 | DI.RAD.S_ITS ---
PROCEDURE: XR HAND RT MIN 3V INDICATIONS: Osteoarthritis of Multiple Joints TECHNIQUE: 3 views of the hand(s) acquired. COMPARISON: [facility], CR, XR HAND LT MIN 3V, 02/07/2020, 11:39. FINDINGS: Bones: No fracture. Diffuse interphalangeal joint degeneration. There is also severe 2nd and 3rd MCP degenerative joint disease. Possible early hook like osteophyte formation. Marginal lucencies present at the 2nd and 3rd MCP joints, as well as the PIP joint of the middle and index finger. Ulnocarpal chondrocalcinosis is seen. There is severe radiocarpal joint degeneration and postsurgical changes related to plate and screw fixation of the distal radius. Mild widening of the scapholunate interval. Soft tissues: No suspicious soft tissue calcifications. IMPRESSION: Chondrocalcinosis and hook like osteophyte formation seen at the 2nd and 3rd MCP joints suggestive of deposition arthropathy. Additional postsurgical and degenerative changes as above. Dictated by: Abdi Greco M.D. on 02/07/2020 at 13:42 Approved by: Abdi Greco M.D. on 02/07/2020 at 13:45
--- NOTE | 2020-02-07 | DI.RAD.S_ITS ---
PROCEDURE: XR SHOULDER RT MIN 2V INDICATIONS: Osteoarthritis of Multiple Joints TECHNIQUE: 3 views of the shoulder were acquired. COMPARISON: [facility], , SHOULDER MINIMUM 2VIEW RIGHT, 07/16/2013, 10:37. FINDINGS: Bones: No fractures or dislocations. No suspicious bony lesions. Visualized ribs appear intact. Mild glenohumeral degenerative sclerosis and spurring. AC joint degeneration also noted. Soft tissues: No suspicious soft tissue calcifications. IMPRESSION: Right shoulder degenerative changes as above. If the patient's pain or other symptoms persist, consider further evaluation with MRI Dictated by: Abdi Greco M.D. on 02/07/2020 at 13:45 Approved by: Abdi Greco M.D. on 02/07/2020 at 13:48
== END ==
PROVIDERS: PCP Internal Medicine; Referring Provider Internal Medicine; Visit Provider Internal Medicine
DX: M19.042 Primary osteoarthritis, left hand (principal); M19.041 Primary osteoarthritis, right hand; M11.241 Other chondrocalcinosis, right hand; M19.011 Primary osteoarthritis, right shoulder
CPT/HCPCS: 73030; 73130